=== PATIENT | male | born 1985 ===

== ENCOUNTER 2020-10-27 19:06 | Inpatient (IN) | payer MEDICAID ==
[~2020-10-27] VITALS: Ht 170.2 cm; Wt 90.3 kg
[2020-10-27] MEDS ORDERED: DiphenhydrAMINE HCL 50 MG/ML VIAL IM ONE (19:15)
[2020-10-27] MEDS ORDERED: LORazepam 2 MG/ML VIAL IM ONE (19:15)
[2020-10-27] MEDS ORDERED: HALOPERIDOL LACTATE 5 MG/ML VIAL IM ONE (19:15)
[2020-10-27 20:52] LABS: BASOPHILS % (AUTO) 0.4 % (0.0-2.0); EOSINOPHILS % (AUTO) 0.6 % (1.0-6.0); HEMOGLOBIN 15.6 g/dL (13.5-17.5); LYMPHOCYTES # (AUTO) 1.7 K/uL (1.0-4.8); LYMPHOCYTES % (AUTO) 12.9 % (22.0-44.0); MEAN CORPUSCULAR HEMOGLOBIN 29.9 pg (26.0-34.0); MEAN CORPUSCULAR HGB CONC 34.6 G/dL (31.0-37.0); MEAN CORPUSCULAR VOLUME 86 fL (80-100); MONOCYTES # (AUTO) 1.4 K/uL (0.1-1.0); MONOCYTES % (AUTO) 10.7 % (2.0-9.0); NEUTROPHILS # (AUTO) 9.8 K/uL (1.8-7.7); NEUTROPHILS % (AUTO) 75.4 % (40.0-70.0); PLATELET COUNT (AUTO) 205 K/uL (150-450); RED BLOOD CELL COUNT(AUTO) 5.21 MIL/uL (4.50-5.90); RED CELL DISTRIBUTION WIDTH 13.2 % (11.5-14.5)
[2020-10-27 20:56] LABS: ANION GAP 10 mmol/L (8-16); CALCIUM, TOTAL 9.5 mg/dL (8.8-10.5); CARBON DIOXIDE 27 mmol/L (22-29); CHLORIDE 104 mmol/L (98-107); CREATININE 1.11 mg/dL (0.60-1.30); GLOMERULAR FILTR. RATE CALC > 60 mL/min (>60); GLUCOSE,RANDOM 93 mg/dL (70-110); POTASSIUM 3.6 mmol/L (3.5-5.1); SODIUM SERUM 141 mmol/L (136-145); UREA NITROGEN, BLOOD 13 mg/dL (7-18)
[2020-10-27 21:03] LABS: ALANINE AMINOTRANSFERASE 81 U/L (12-78); ALBUMIN 4.3 g/dL (3.4-5.0); ALKALINE PHOSPHATASE 139 U/L (46-116); ASPARTATE AMINOTRANSFERASE 83 U/L (15-37); BILIRUBIN,TOTAL 1.1 mg/dL (0.1-1.0); TOTAL PROTEIN, SERUM 7.2 g/dL (6.4-8.2)
[2020-10-27 22:46] LABS: COVID AG,FIA SOURCE NASOPHARYNGEAL
[2020-10-27] MEDS ORDERED: LORazepam 2 MG TABLET PO PRN (23:00)
[2020-10-27] MEDS ORDERED: ZOLPIDEM TARTRATE 10 MG TABLET PO PRN (23:00)
[2020-10-27] MEDS ORDERED: HALOPERIDOL 5 MG TABLET PO PRN (23:00)
[2020-10-28 01:46] LABS: CHOL/HDL RATIO 3.5 (4.2-7.3); CHOLESTEROL 119 mg/dL (131-200); HDL CHOLESTEROL 34 mg/dL (40-60); LDL CHOL (CALC.) 71 mg/dL (0-130); TRIGLYCERIDES 70 mg/dL (15-150)
[2020-10-28 04:45] VITALS: BP 97/68
[2020-10-28] MEDS ORDERED: GuaiFENesin/D-METHORPHAN [SUGAR-FREE] 200-20MG/10 ML SYRUP UDCUP PO PRN (07:00)
[2020-10-28] MEDS ORDERED: MAG HYDROX/AL HYDROX/SIMETH ES 30 ML SUSPENSION UDCUP PO PRN (07:00)
[2020-10-28] MEDS ORDERED: LOPERAMIDE HCL 2 MG CAPSULE PO PRN (07:00)
[2020-10-28] MEDS ORDERED: CloNIDine HCL 0.1 MG TABLET PO PRN (07:00)
[2020-10-28] MEDS ORDERED: DOCUSATE SODIUM 100 MG CAPSULE PO PRN (07:00)
[2020-10-28] MEDS ORDERED: NICOTINE 14 MG/24 HOUR PATCH TD PRN (07:00)
[2020-10-28] MEDS ORDERED: ACETAMINOPHEN 325 MG TABLET PO PRN (07:00)
[2020-10-28] MEDS ORDERED: ALBUTEROL SULFATE HFA 90 MCG/PUFF 8 GM INHALER IH PRN (07:00)
[2020-10-28] MEDS ORDERED: IBUPROFEN 400 MG TABLET PO PRN (07:00)
[2020-10-28] MEDS ORDERED: PETROLATUM,WHITE 28 GM JELLY TP PRN (07:00)
[2020-10-28] MEDS ORDERED: ONDANSETRON HCL 4 MG TABLET PO PRN (07:00)
[2020-10-28] MEDS ORDERED: MAGNESIUM HYDROXIDE SUSPENSION 30 ML UDCUP PO PRN (07:00)
[2020-10-28 08:52] VITALS: BP 115/68
[2020-10-28] MEDS: OLANZapine 5 MG TABLET PO SCH ×2 (12:17→16:22)
[2020-10-28 16:05] VITALS: BP 97/66
[2020-10-29 08:00] VITALS: BP_SYST 110
[2020-10-29] MEDS: OLANZapine 5 MG TABLET PO SCH ×2 (08:20→16:49)
[2020-10-29 15:31] VITALS: BP 131/76
[2020-10-30] MEDS: OLANZapine 5 MG TABLET PO SCH (08:52)
[2020-10-30] MEDS ORDERED: OLAN5TAB2 PO (13:44)
== END 2020-10-30 15:25 | disposition home or self-care (01) | DRG 751 ==
LOC: EMS 19:08 → 3EC 22:58 → EMS 10-28 03:00
PROVIDERS: ADMIT Psychiatry & Neurology Psychiatry; ATTEND Psychiatry & Neurology Psychiatry
DX: F29 Unspecified psychosis not due to a substance or known physiological condition (principal); G93.40 Encephalopathy, unspecified; F20.9 Schizophrenia, unspecified; Z78.1 Physical restraint status; R74.01 Elevation of levels of liver transaminase levels; Z59.0 Homelessness; D72.829 Elevated white blood cell count, unspecified; R45.851 Suicidal ideations; Z20.822 Contact with and (suspected) exposure to COVID-19; F17.210 Nicotine dependence, cigarettes, uncomplicated
CPT/HCPCS: 80053; 80061; 85025; 87426; 99285; G0480; J1200; J1630; J2060